=== PATIENT | female | born 1970 | race Caucasian/White ===

== ENCOUNTER 2017-08-31 12:05 | Emergency (ER) | payer SELFPAY ==
[~2017-08-31] VITALS: Ht 175.3 cm; Wt 59.0 kg
[~2017-08-31 12:05] MED LIST: DOXY100C2 PO; MULT-963 PO
--- OUTSIDE RECORDS SUMMARY | 2017-08-31 12:11 | XMS REPORT | Continuity of Care Document ---
Author Author [facility] Organization [facility] Address Unknown Phone Unavailable Allergies Medications Problems Procedures Results Encounters ACCT No. Visit Date/Time Discharge Status Pt. Type Provider Facility Loc./Unit Complaint [id number] 03/09/2014 19:06:00 2013 19:50:00 DIS Emergency [id number] 06/11/2013 13:46:00 2012 17:15:00 DIS Emergency [id number] 06/03/2013 11:21:00 2012 23:59:59 CLS Outpatient [id number] 02/27/2013 15:55:00 2012 17:06:00 DIS Emergency [id number] 08/31/2017 12:08:00 ACT Emergency CAMERON HERNANDEZ DO [facility] ER RT ARM AND LEG NUMB THIS AM AND FACIAL NUMBNESS
[2017-08-31 14:18] LABS: BASOPHILS # (AUTO) 0.1 10^3/uL (0.0-0.1); BASOPHILS % (AUTO) 2 % (0-10); EOSINOPHILS % (AUTO) 0 % (0-10); LYMPHOCYTES # (AUTO) 1.6 X 10^3 (1.0-4.0); LYMPHOCYTES % (AUTO) 22 % (12-44); MEAN CORPUSCULAR HEMOGLOBIN 32 PG (25-34); MEAN CORPUSCULAR HGB CONC 35 G/DL (32-36); MEAN CORPUSCULAR VOLUME 92 FL (80-99); MONOCYTES # (AUTO) 0.7 X 10^3 (0.0-1.0); MONOCYTES % (AUTO) 10 % (0-12); NEUTROPHILS # (AUTO) 4.9 X 10^3 (1.8-7.8); NEUTROPHILS % (AUTO) 66 % (42-75); PLATELET COUNT 305 10^3/uL (130-400); RED BLOOD COUNT 4.46 10^6/uL (4.35-5.85); RED CELL DISTRIBUTION WIDTH 13.3 % (10.0-14.5); WHITE BLOOD COUNT 7.4 10^3/uL (4.3-11.0)
[2017-08-31] MEDS ORDERED: NS 100 ML (IVPB) BAG IV ONE (14:30)
[2017-08-31] MEDS ORDERED: IOHEXOL 350 MG/ML 100 ML (OMNIPAQUE 350) VIAL IV ONE (14:30)
[2017-08-31 14:34] LABS: ALANINE AMINOTRANSFERASE 16 U/L (0-55); ALBUMIN 4.7 GM/DL (3.2-4.5); ANION GAP 12 MMOL/L (5-14); ASPARTATE AMINO TRANSFERASE 18 U/L (5-34); BILIRUBIN,TOTAL 1.1 MG/DL (0.1-1.0); BLOOD UREA NITROGEN 9 MG/DL (7-18); BUN/CREATININE RATIO 12; CALCIUM 9.5 MG/DL (8.5-10.1); CARBON DIOXIDE 24 MMOL/L (21-32); CHLORIDE 104 MMOL/L (98-107); CREATININE SERUM 0.73 MG/DL (0.60-1.30); GFR ESTIMATED > 60; GLUCOSE 112 MG/DL (70-105); POTASSIUM 3.8 MMOL/L (3.6-5.0); SODIUM 140 MMOL/L (135-145); TOTAL PROTEIN 8.6 GM/DL (6.4-8.2)
[2017-08-31 14:46] LABS: PROTHROMBIN TIME PATIENT 12.9 SEC (12.2-14.7)
--- NOTE | 2017-08-31 15:04 | Diagnostic Imaging Report ---
PROCEDURE: CT neck soft tissue without contrast. TECHNIQUE: Multiple contiguous axial images were obtained through the neck without the use of intravenous contrast. INDICATION: Right arm and leg pain. Numbness in right side of the neck. FINDINGS: The salivary glands are symmetrical and normal in appearance. The thyroid is normal. There is no mass or suspicious lymphadenopathy. There is no encroachment upon the airway. No acute bony abnormality is seen. There is a 3.2 x 4.5 cm mass in the left upper lobe or aorticopulmonary window that is only partially visualized. This is suspicious for neoplasm and recommend CT of the chest, with contrast, if possible. IMPRESSION: No abnormality of the neck is seen but there is a mass in the left upper lobe or AP window that is only partially visualized. Recommend complete CT of the chest for better evaluation of this. Dictated by: Dictated on workstation # [id number]
--- NOTE | 2017-08-31 15:11 | Diagnostic Imaging Report ---
INDICATION: Right hand numbness. COMPARISON: No priors. FINDINGS: There is no focal pulmonary consolidation. There is some suggestion of air trapping and likely prominence of interstitial lung markings on a chronic basis. The heart size is within normal limits. There is prominence of the left superior pulmonary hilar region believed to reflect superimposed prominent central vascularity and pulmonary arterial branches. No effusion or pneumothorax. No free air beneath the diaphragms. IMPRESSION: Chronic-appearing findings as described. Dictated by: Dictated on workstation # [id number]
[2017-08-31 15:13] LABS: BILIRUBIN,URINE NEGATIVE (NEGATIVE); KETONES,URINE NEGATIVE (NEGATIVE); LEUKOCYTE ESTERASE ,URINE NEGATIVE (NEGATIVE); NITRITE,URINE NEGATIVE (NEGATIVE); PH,URINE 5 (5-9); PROTEIN,URINE NEGATIVE (NEGATIVE); UROBILINOGEN,URINE NORMAL (NORMAL)
--- NOTE | 2017-08-31 15:21 | Diagnostic Imaging Report ---
PROCEDURE: CT head and CT cervical spine without contrast. TECHNIQUE: Multiple contiguous axial images were obtained through the brain and cervical spine without the use of intravenous contrast. Sagittal and coronal reformations through the cervical spine were then performed. INDICATION: Right arm and leg pain, numbness. FINDINGS: CT head: There is no intracranial hemorrhage, hydrocephalus, edema, mass or mass effect. The orbits, sinuses and calvarium are within normal limits. Basilar cisterns patent. The sulci non-effaced. No sulcal effacement. The maldonado-white matter interfaces appeared maintained. CT cervical spine: Cervical vertebral body heights are maintained; their alignment is anatomic. Skull base appeared intact. There is no mastoid effusion. No cervical fracture or paravertebral hemorrhage and no substantial degree of spinal canal stenosis is found. No bony destructive process. There is mild disc bulging at the C5-C6 and C6-C7 levels. No substantial foraminal encroachment. IMPRESSION: 1. CT head: No hemorrhage, edema or acute pathology. 2. CT cervical spine: Mild lower cervical spondylosis without fracture, high-grade stenosis or malalignment. Dictated by: Dictated on workstation # [id number]
--- NOTE | 2017-08-31 16:08 | Diagnostic Imaging Report ---
PROCEDURE: CT chest with contrast only. TECHNIQUE: Multiple contiguous axial images were obtained through the chest after administration of intravenous contrast. INDICATION: Lung mass seen on CT neck. FINDINGS: Lungs are clear. There are no infiltrates, effusions or pneumothoraces. There is no hilar or mediastinal lymphadenopathy. The left main pulmonary artery is dilated, measuring 4.3 cm in diameter. 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 Diameter of the right pulmonary artery is 2.2 cm. Diameter of the main pulmonary artery is 1.9 cm and diameter of the left pulmonary artery is 4.3 cm. There are no pulmonary emboli. There are no abnormalities seen in the lungs. The density seen on the noncontrast CT neck is the dilated left pulmonary artery. Dictated by: Dictated on workstation # [id number]
[2017-08-31] MEDS ORDERED: MELO15TA14 PO ×2 (16:38→16:39)
--- NOTE | 2017-08-31 16:39 | ED General ---
General Chief Complaint: Neurological Problems Stated Complaint: RT ARM AND LEG NUMB THIS AM AND FACIAL NUMBNESS Nursing Triage Note: pt reports she woke up at 0500 et right hand was numb. she reports she went back to sleep. awoke at 0900 et right leg was numb. she had trouble walking. also reports numbness in right side of face. she reports numbness to right of mouth persists. she has had numbness in her hand et arm in the past, but never in the leg. 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 Nursing Sepsis Screen: No Definite Risk Allergies and Home Medications Allergies Coded Allergies: Codeine (Unverified Adverse Reaction, Mild, BREATHING, 02/26/11) Penicillins (Unverified Adverse Reaction, Mild, PALPITATIONS, 02/26/11) bee venom (honey bee) (Verified Adverse Reaction, Mild, local reaction, ) Home Medications Multivitamin 1 Each Tablet, 1 EACH PO DAILY, (Reported) Past Pwgrvop-Iwxyzf-Kjtsrc Hx Patient Social History Alcohol Use: Denies Use Recreational Drug Use: No Smoking Status: Former Smoker Recent Foreign Travel: No Contact w/Someone Who Travel: No Recent Infectious Disease Expo: No Recent Hopitalizations: No Seasonal Allergies Seasonal Allergies: No Surgeries History of Surgeries: Yes (Spleenectomy, x 2) Surgeries: Section Respiratory History of Respiratory Disorde: No Cardiovascular History of Cardiac Disorders: Yes (pulmonary stenosis ) Neurological History of Neurological Disord: No Gastrointestinal History of Gastrointestinal Di: No Musculoskeletal History of Musculoskeletal Dis: No Endocrine History of Endocrine Disorders: No Cancer History of Cancer: No Psychosocial History of Psychiatric Problem: No Integumentary History of Skin or Integumenta: No Physical Exam Vital Signs Vital Sign - Last 12Hours 08/31/17 12:18 Temp 99.1 Pulse 97 Resp 16 B/P (MAP) 118/73 Capillary Refill : Less Than 3 Seconds Progress/Results/Core Measures Suspected Sepsis Recent Fever Within 48 Hours: No Infection Criteria Present: None New/Unexplained Altered Menta: No Sepsis Screen: No Definite Risk Sepsis Diagnosis: SIRS Temperature:99.1 Pulse: 97 Respiratory Rate: 16 Laboratory Tests 08/31/17 14:05: White Blood Count 7.4 Blood Pressure 118 /73 Mean: 88 Laboratory Tests 08/31/17 14:05: Creatinine 0.73, INR Comment 1.0, Platelet Count 305, Total Bilirubin 1.1H Results/Orders Lab Results Laboratory Tests Test 08/31/17 14:05 08/31/17 15:00 Range/Units White Blood Count 7.4 4.3-11.0 10^3/uL Red Blood Count 4.46 4.35-5.85 10^6/uL Hemoglobin 14.2 11.5-16.0 G/DL Hematocrit 41 35-52 % Mean Corpuscular Volume 92 80-99 FL Mean Corpuscular Hemoglobin 32 25-34 PG Mean Corpuscular Hemoglobin Concent 35 32-36 G/DL Red Cell Distribution Width 13.3 10.0-14.5 % Platelet Count 305 130-400 10^3/uL Mean Platelet Volume 10.0 7.4-10.4 FL Neutrophils (%) (Auto) 66 42-75 % Lymphocytes (%) (Auto) 22 12-44 % Monocytes (%) (Auto) 10 0-12 % Eosinophils (%) (Auto) 0 0-10 % Basophils (%) (Auto) 2 0-10 % Neutrophils # (Auto) 4.9 1.8-7.8 X 10^3 Lymphocytes # (Auto) 1.6 1.0-4.0 X 10^3 Monocytes # (Auto) 0.7 0.0-1.0 X 10^3 Eosinophils # (Auto) 0.0 0.0-0.3 10^3/uL Basophils # (Auto) 0.1 0.0-0.1 10^3/uL Prothrombin Time 12.9 12.2-14.7 SEC INR Comment 1.0 0.8-1.4 Activated Partial Thromboplast Time 25 24-35 SEC Sodium Level 140 135-145 MMOL/L Potassium Level 3.8 3.6-5.0 MMOL/L Chloride Level 104 98-107 MMOL/L Carbon Dioxide Level 24 21-32 MMOL/L Anion Gap 12 5-14 MMOL/L Blood Urea Nitrogen 9 7-18 MG/DL Creatinine 0.73 0.60-1.30 MG/DL Estimat Glomerular Filtration Rate > 60 BUN/Creatinine Ratio 12 Glucose Level 112 H 70-105 MG/DL Calcium Level 9.5 8.5-10.1 MG/DL Magnesium Level 2.0 1.8-2.4 MG/DL Total Bilirubin 1.1 H 0.1-1.0 MG/DL Aspartate Amino Transf (AST/SGOT) 18 5-34 U/L Alanine Aminotransferase (ALT/SGPT) 16 0-55 U/L Alkaline Phosphatase 41 40-136 U/L Total Protein 8.6 H 6.4-8.2 GM/DL Albumin 4.7 H 3.2-4.5 GM/DL TSH [place] Testing 3.90 0.35-4.94 UIU/ML Serum Test, Qualitative NEGATIVE NEGATIVE Urine Color YELLOW Urine Clarity CLEAR Urine pH 5 5-9 Urine Specific [place] 1.020 1.016-1.022 Urine Protein NEGATIVE NEGATIVE Urine Glucose (UA) NEGATIVE NEGATIVE Urine Ketones NEGATIVE NEGATIVE Urine Nitrite NEGATIVE NEGATIVE Urine Bilirubin NEGATIVE NEGATIVE Urine Urobilinogen NORMAL NORMAL MG/DL Urine Leukocyte Esterase NEGATIVE NEGATIVE Urine RBC (Auto) 2+ H NEGATIVE Urine RBC 2-5 H /HPF Urine WBC NONE /HPF Urine Squamous Epithelial Cells 2-5 /HPF Urine Crystals NONE /LPF Urine Bacteria NONE /HPF Urine Casts NONE /LPF Urine Mucus NEGATIVE /LPF Urine Culture Indicated NO My Orders Orders - CAMERON HERNANDEZ DO Saline Lock/Iv-Start (08/31/17 14:00) Cbc With Automated Diff (08/31/17 14:00) Comprehensive Metabolic Panel (08/31/17 14:00) Magnesium (08/31/17 14:00) Protime With Inr (08/31/17 14:00) Partial Thromboplastin Time (08/31/17 14:00) Thyroid Analyzer (08/31/17 14:00) Ua Culture If Indicated (08/31/17 14:00) Chest 1 View, Ap/Pa Only (08/31/17 14:00) Ct Head/Cervical Spine Wo (08/31/17 14:15) Hcg,Qualitative Serum (08/31/17 14:20) Iohexol Injection (Omnipaque 350 Mg/Ml 1 (08/31/17 14:30) Pharmacy Communication (Pharmacy Communi (08/31/17 14:24) Ns (Ivpb) (Sodium Chloride 0.9% Ivpb Bag (08/31/17 14:30) Ct Chest W (08/31/17 15:37) Medications Given in ED Current Medications Medications Dose Ordered Sig/Tashi Route Start Time Stop Time Status Last Admin Dose Admin Iohexol 100 ml ONCE ONCE IV 08/31/17 14:30 08/31/17 14:31 DC 08/31/17 15:50 80 ML Sodium Chloride 100 ml ONCE ONCE IV 08/31/17 14:30 08/31/17 14:31 DC 08/31/17 15:50 80 ML Vital Signs/I&O Vital Sign - Last 12Hours 08/31/17 12:18 Temp 99.1 Pulse 97 Resp 16 B/P (MAP) 118/73 Capillary Refill : Less Than 3 Seconds Blood Pressure Mean: 88 Departure Impression Impression: Primary Impression: BILATERAL CARPAL TUNNEL SYMPTOMS Additional Impression: Cervical disc disease Disposition: HOME, SELF-CARE Condition: Stable Departure-Patient Inst. Referrals: KIP FERRARI DO (PCP/Family) Primary Care Physician NATALEE LOPES DO Patient Instructions: Carpal Tunnel Exercises, Carpal Tunnel Syndrome (DC), Degenerative Disc Disease (DC), Paresthesias (DC) Add. Discharge Instructions: WEAR WRIST SPLINTS TO BED EVERY NIGHT FOLLOW UP WITH DR. LOPES AT [address] NEXT WEEK FOR FURTHER All discharge instructions reviewed with patient and/or family. Voiced understanding. Scripts Meloxicam (Mobic) 15 Mg Tablet 15 MG PO DAILY, #10 TAB Prov: CAMERON HERNANDEZ DO 08/31/17 CAMERON HERNANDEZ DO Aug 31, 2017 16:39
[2017-08-31 16:55] VITALS: BP 120/72
== END 2017-08-31 16:55 | disposition home or self-care (01) ==
LOC: EDUNIT# 12:05 → ER 12:08
DX: G56.03 Carpal tunnel syndrome, bilateral upper limbs (principal); M50.90 Cervical disc disorder, unspecified, unspecified cervical region; Z87.891 Personal history of nicotine dependence; Z87.59 Personal history of other complications of pregnancy, childbirth and the puerperium; Z90.81 Acquired absence of spleen; Z87.09 Personal history of other diseases of the respiratory system
CPT/HCPCS: 36415; 70450; 70490; 71010; 71260; 72125; 80053; 81000; 83735; 84443; 84703; 85025; 85610; 85730